=== PATIENT | female | born 1995 | race Caucasian/White ===

== ENCOUNTER 2017-03-28 16:57 | Emergency (ER) | payer MEDICAID ==
--- NOTE | 2017-03-28 17:36 | UC ---
[facility] H[facility] - HPI Summary HPI Summary: 21 YEAR OLD FEMALE PRESENTS WITH COMPLAINS OF LOWER BI MOLAR PAIN. - History of Current Complaint Stated Complaint: MOUTH PAIN Time Seen by Provider: 03/28/17 17:34 - Allergies/Home Medications Allergies/Adverse Reactions: Allergies Allergy/AdvReac Type Severity Reaction Status Date / Time Penicillins Allergy Rash And Verified 03/28/17 17:42 Itching Home Medications: Home Medications Ibuprofen TAB* [Motrin TAB* 800 MG] 800 mg PO Q6H 03/28/17 [History Confirmed ] Review of Systems Constitutional: Negative Skin: Negative Eyes: Negative ENT: Dental Pain Respiratory: Negative Cardiovascular: Negative Gastrointestinal: Negative Genitourinary: Negative Motor: Negative Neurovascular: Negative Musculoskeletal: Negative Neurological: Negative Psychological: Negative All Other Systems Reviewed And Are Negative: Yes Physical Exam Triage Information Reviewed: Yes Eye Exam: Normal ENT Exam: Normal Dental: Positive: Other: - LOWER WISDOM TEETH PAIN Neck exam: Normal Neck: Positive: 1 Respiratory Exam: Normal Cardiovascular Exam: Normal Abdominal Exam: Normal Musculoskeletal Exam: Normal Neurological Exam: Normal Psychological Exam: Normal Skin Exam: Normal Dental Complaint Course/Dx - Differential Dx/Diagnosis Provider Diagnoses: BILATERAL LOWER MOLAR PAIN Discharge - Discharge Plan Condition: Stable Disposition: HOME Prescriptions: Chlorhexidine MW 0.12% 473ML* [Peridex Mouth Wash 0.12%*] 15 ml MT TID PC #1 btl Erythromycin TAB* 500 mg PO QID #40 tab Magic M W2 Jalen/Maal/Nyst/Lido* 15 ml SWISH SPIT QID #120 ml Patient Education Materials: Dental Abscess (ED), Toothache (ED) Referrals: No Primary Care Phys,NOPCP [Primary Care Provider] -
[2017-03-28 17:42] VITALS: BP 109/55
== END 2017-03-28 18:04 | disposition home or self-care (01) ==
LOC: UCCORT 16:57
DX: K08.89 Other specified disorders of teeth and supporting structures (principal); Z32.02 Encounter for pregnancy test, result negative
CPT/HCPCS: 84702; 99202; G0463